=== PATIENT | male | born 1980 ===

== ENCOUNTER 2018-02-07 12:07 | Emergency (ER) | payer SELFPAY ==
[2018-02-07 12:07] VITALS: BMI 47.8
[2018-02-07 12:19] VITALS: RESP 18; TEMP 98.2
--- NOTE | 2018-02-07 12:31 | ED PDOC ---
Arrival/HPI - General Chief Complaint: High Blood Pressure Time Seen by Provider: 02/07/18 12:10 Historian: Patient - History of Present Illness Narrative History of Present Illness (Text): 02/07/18 12:26 37 year old male, with a past medical history that includes Hypertension, presents to the emergency department with high blood pressure. Patient states he was at the wound center this morning for his leg wound and they read his blood pressure to be very high. Patient states he feels fine, and has no symptoms. Patient states the "cuff was too small for his arm". Patient states he has been having a headache since yesterday, associated with some tooth pain. Patient states he had the tooth removed a year ago, and now the area is giving him gum pain. Patient denies any fever, chills, dizziness, cough, chest pain, shortness of breath, abdominal pain, nausea, vomiting, diarrhea, neck/ back pain, urinary/bowel changes or any other complaint. 02/07/18 15:35 Time/Duration: Prior to Arrival Symptom Course: Unchanged Activities at Onset: Light Past Medical History - Provider Review Nursing Documentation Reviewed: Yes - Infectious Disease Hx of Infectious Diseases: None - Cardiac Hx Hypertension: Yes - Pulmonary Hx Respiratory Disorders: No - Neurological Hx Neurological Disorder: No - HEENT Hx HEENT Disorder: Yes Other/Comment: Use Eyeglasses - Renal Hx Renal Disorder: No - Endocrine/Metabolic Hx Endocrine Disorders: No Other/Comment: Pre diabetes - Hematological/Oncological Hx Blood Disorders: No - Integumentary Hx Dermatological Disorder: No - Musculoskeletal/Rheumatological Hx Musculoskeletal Disorders: No Hx Falls: No - Gastrointestinal Hx Gastrointestinal Disorders: No - Genitourinary/Gynecological Hx Genitourinary Disorders: No - Psychiatric Hx Psychophysiologic Disorder: No Hx Substance Use: No - Surgical History Hx Arthroscopy: Yes (Right knee) - Anesthesia Hx Anesthesia: No Hx Anesthesia Reactions: No Hx Malignant Hyperthermia: No Family/Social History - Physician Review Nursing Documentation Reviewed: Yes Family/Social History: No Known Family HX Smoking Status: Light Smoker < 10 Cigarettes Daily Hx Alcohol Use: No Hx Substance Use: No Allergies/Home Meds Allergies/Adverse Reactions: Allergies No Known Allergies Allergy (Verified 02/07/18 12:15) Home Medications: Home Meds Medication Instructions Recorded Confirmed amLODIPine [Norvasc] 10 mg PO DAILY 05/19/17 02/07/18 Review of Systems - Physician Review All systems were reviewed & negative as marked: Yes - Review of Systems Constitutional: Normal. absent: Fevers, Night Sweats Eyes: Normal ENT: Normal Respiratory: Normal. absent: SOB, Cough Cardiovascular: Normal. absent: Chest Pain Gastrointestinal: Normal. absent: Abdominal Pain, Diarrhea, Nausea, Vomiting Genitourinary Male: Normal Musculoskeletal: Normal. absent: Back Pain, Neck Pain Skin: Normal Neurological: Normal. absent: Dizziness Endocrine: Normal Hemo/Lymphatic: Normal Psychiatric: Normal Physical Exam Vital Signs Reviewed: Yes Vital Signs Temp Pulse Resp BP Pulse Ox 02/07/18 12:46 98.2 F 90 18 165/99 H 97 02/07/18 12:18 98.2 F 86 18 165/89 H 99 Temperature: Afebrile Blood Pressure: Normal Pulse: Regular Respiratory Rate: Normal Appearance: Positive for: Well-Appearing, Non-Toxic, Comfortable Pain Distress: None Mental Status: Positive for: Alert and Oriented X 3 - Systems Exam Head: Present: Atraumatic, Normocephalic Pupils: Present: PERRL Extroacular Muscles: Present: EOMI Conjunctiva: Present: Normal Mouth: Present: Moist Mucous Membranes Neck: Present: Normal Range of Motion Respiratory/Chest: Present: Clear to Auscultation, Good Air Exchange. No: Respiratory Distress, Accessory Muscle Use Cardiovascular: Present: Regular Rate and Rhythm, Normal S1, S2. No: Murmurs Abdomen: No: Tenderness, Distention, Peritoneal Signs Back: Present: Normal Inspection Upper Extremity: Present: Normal Inspection. No: Cyanosis, Edema Lower Extremity: Present: Normal Inspection. No: Edema Neurological: Present: GCS=15, CN II-XII Intact, Speech Normal Skin: Present: Warm, Dry, Normal Color. No: Rashes Psychiatric: Present: Alert, Oriented x 3, Normal Insight, Normal Concentration Medical Decision Making ED Course and Treatment: 02/07/18 12:32 Impression: 37 year old male presents to the emergency department with high blood pressure. in er b/p 160 systolic. pt otherwise asympaotmic excepts mild palma and toothache. Plan: -- Amoxicillin -- Reassess and disposition Prior Visits: Notes and results from previous visits were reviewed. Progress Notes: 02/07/18 12:35 Patient was offered lab evaluations and imaging. Patient states he feels completely fine and denies further evaluation as b/p is now lower than clinic findings. he states he will return with worsening. 02/07/18 15:36 - Medication Orders Current Medication Orders: Discontinued Medications Amoxicillin (Amoxil 500 Mg Cap) 500 mg PO STAT STA PRN Reason: Protocol Stop: 02/07/18 12:25 Last Admin: 02/07/18 12:42 Dose: 500 mg - Scribe Statement The provider has reviewed the documentation as recorded by the Scribe Lazaro Galna All medical record entries made by the Scribe were at my direction and personally dictated by me. I have reviewed the chart and agree that the record accurately reflects my personal performance of the history, physical exam, medical decision making, and the department course for this patient. I have also personally directed, reviewed, and agree with the discharge instructions and disposition. Disposition/Present on Arrival - Present on Arrival Any Indicators Present on Arrival: No History of DVT/PE: No History of Uncontrolled Diabetes: No Urinary Catheter: No History of Decub. Ulcer: No History Surgical Site Infection Following: None - Disposition Have Diagnosis and Disposition been Completed?: Yes Diagnosis: Hypertension, Toothache Disposition: HOME/ ROUTINE Disposition Time: 12:35 Condition: STABLE Discharge Instructions (ExitCare): Controlling Your Blood Pressure Through Lifestyle, Medicines for High Blood Pressure, Dental Pain (DC) Additional Instructions: you are declining any lab work and imaging. you are able to return to any er with any worsening symptoms or concerns. Prescriptions: Amoxicillin [Amoxil 500 mg Cap] 500 mg PO TID #30 cap Referrals: [facility] [Outside] - Follow up with primary [facility] [Outside] - Follow up with primary [facility] [facility] [Outside] - Follow up with primary Forms: [employer] (Setswana)
[2018-02-07 12:47] VITALS: BP 165/99; PULSE 90; O2SAT 97
== END 2018-02-07 12:46 | disposition home or self-care (01) ==
LOC: ED 12:07
DX: I10 Essential (primary) hypertension (principal); K08.89 Other specified disorders of teeth and supporting structures; F17.210 Nicotine dependence, cigarettes, uncomplicated; R73.03 Prediabetes

== ENCOUNTER 2018-09-18 15:48 | Emergency (ER) | payer OTHER ==
[2018-09-18 16:03] VITALS: BMI 59.3
[2018-09-18 16:09] VITALS: RESP 18; TEMP 97.7
[2018-09-18] MEDS ORDERED: Labetalol 5mg/ml (4ml) IV STA (16:15)
[2018-09-18 16:41] LABS: BASO # 0.03 K/mm3 (0.0-2.0); BASO % 0.3 % (0.0-3.0); EOS # 0.3 (0.0-0.7); EOS % 3.2 % (1.5-5.0); HEMOGLOBIN 13.3 g/dL (14.0-18.0); LYMPH # 2.5 (1.2-3.4); LYMPH % 26.9 % (22.0-35.0); MEAN CELL VOLUME 85.8 fl (80.0-105.0); MEAN CORPUSCULAR HEMOGLOBIN 27.3 pg (25.0-35.0); MEAN CORPUSCULAR HGB CONC 31.8 g/dl (31.0-37.0); MONO # 0.7 (0.1-0.6); MONO % 7.8 % (1.0-6.0); RBC 4.87 10^6/uL (3.5-6.1); RED CELL DISTRIBUTION WIDTH 13.5 % (11.5-14.5); WHITE BLOOD COUNT 9.2 10^3/uL (4.5-11.0)
[2018-09-18] MEDS ORDERED: Sodium Chloride 0.9% 1,000 ML IV SCH (16:45)
[2018-09-18 16:54] LABS: ALBUMIN 3.9 g/dL (3.0-4.8); ALT/SGPT 50 U/L (7-56); AST/SGOT 28 U/L (17-59); BLOOD UREA NITROGEN 23 mg/dL (7-21); CALCIUM 9.6 mg/dL (8.4-10.5); GFR NON-AFRICAN AMERICAN > 60
[2018-09-18 17:01] LABS: URINE APPEARANCE CLEAR (CLEAR); URINE BILIRUBIN NEGATIVE (NEGATIVE); URINE BLOOD NEGATIVE (NEGATIVE); URINE COLOR YELLOW (YELLOW); URINE GLUCOSE (UA) NEGATIVE (NEGATIVE); URINE LEUKOCYTE ESTERASE TRACE Leu/uL (NEGATIVE); URINE PROTEIN TRACE mg/dL (<30 mg/dL); URINE UROBILINOGEN 0.2 E.U./dL (<1 E.U./dL)
[2018-09-18 17:12] LABS: B-TYPE NATRIURETIC PEPTIDE 57.4 pg/mL (0-450); TROPONIN I < 0.01 ng/mL
--- NOTE | 2018-09-18 17:28 | RAD ---
HISTORY: sob COMPARISON: None available. TECHNIQUE: Chest, one view. FINDINGS: Examination limited by habitus and hypoinflation. LUNGS: Hypoinflation. No focal consolidation. Please note that chest x-ray has limited sensitivity for the detection of pulmonary masses. PLEURA: No significant pleural effusion identified. No definite pneumothorax . CARDIOVASCULAR: Cardiomegaly. No significant atherosclerotic calcification present. OSSEOUS STRUCTURES: No acute osseous abnormality identified. VISUALIZED UPPER ABDOMEN: Unremarkable. OTHER FINDINGS: None. IMPRESSION: Hypoinflation. Cardiomegaly. No focal consolidation.
--- NOTE | 2018-09-18 17:39 | ED PDOC ---
Arrival/HPI - General Chief Complaint: High Blood Pressure Historian: Patient - History of Present Illness Narrative History of Present Illness (Text): 09/18/18 16:36 Devon Chapman is a 38 year old male, with a past medical history of cellulitis, hypertension, morbid obesity, and right ankle ulcer, who presents to the emergency department sent from wound care clinic complaining of hypertension. Patient's blood pressure read 180/110 at wound care. Patient notes tingling sensation of fingers on left hand. Patient notes experiencing intermittent parasthesias of the left upper extremity for 2 weeks. Patient denies any other associated symptoms. Patient was seen at wound [facility] today for chronic right ankle ulcer. Patient denies any fevers, chills, headache, dizziness, vision changes, chest pain, shortness of breath, dyspnea on exertion, cough, abdominal pain, nausea, vomiting, diarrhea, back pain, neck pain, dysuria, hematuria, or any other complaints. Time/Duration: Prior to Arrival Symptom Onset: Sudden Symptom Course: Unchanged Activities at Onset: Light Context: Other (wound care clinic) Past Medical History - Provider Review Nursing Documentation Reviewed: Yes - Infectious Disease Hx of Infectious Diseases: None - Cardiac Hx Hypertension: Yes - Pulmonary Hx Respiratory Disorders: No - Neurological Hx Neurological Disorder: No - HEENT Hx HEENT Disorder: Yes Other/Comment: Use Eyeglasses - Renal Hx Renal Disorder: No - Endocrine/Metabolic Hx Endocrine Disorders: No Other/Comment: Pre diabetes - Hematological/Oncological Hx Blood Disorders: No - Integumentary Hx Dermatological Disorder: No - Musculoskeletal/Rheumatological Hx Musculoskeletal Disorders: No Hx Falls: No - Gastrointestinal Hx Gastrointestinal Disorders: No - Genitourinary/Gynecological Hx Genitourinary Disorders: No - Psychiatric Hx Psychophysiologic Disorder: No Hx Substance Use: No - Surgical History Hx Arthroscopy: Yes (Right knee) - Anesthesia Hx Anesthesia: Yes Hx Anesthesia Reactions: No Hx Malignant Hyperthermia: No Family/Social History - Physician Review Nursing Documentation Reviewed: Yes Family/Social History: Unknown Family HX Smoking Status: Light Smoker < 10 Cigarettes Daily Hx Alcohol Use: No Hx Substance Use: No Allergies/Home Meds Allergies/Adverse Reactions: Allergies No Known Allergies Allergy (Verified 09/18/18 16:03) Home Medications: Home Meds Medication Instructions Recorded Confirmed amLODIPine [Norvasc] 10 mg PO DAILY 05/19/17 09/18/18 Review of Systems - Physician Review All systems were reviewed & negative as marked: Yes - Review of Systems Constitutional: absent: Fevers, Other (chills) Eyes: absent: Vision Changes Respiratory: absent: SOB, Cough Cardiovascular: Other (hypertensive episode). absent: Chest Pain, BRADSHAW Gastrointestinal: absent: Abdominal Pain, Diarrhea, Nausea, Vomiting Genitourinary Male: absent: Dysuria, Hematuria Musculoskeletal: Other (Tingling of fingers in left hand; intermittent parasthesias of left upper extremity for 2 weeks). absent: Back Pain, Neck Pain Neurological: Other. absent: Headache, Dizziness Physical Exam Vital Signs Reviewed: Yes Vital Signs Temp Pulse Pulse Resp BP BP Pulse Ox 09/18/18 16:36 93 H 167/95 H 09/18/18 16:08 97.7 F 97 H 18 177/123 H 95 Temperature: Afebrile Blood Pressure: Hypertensive Pulse: Tachycardic Respiratory Rate: Normal Appearance: Positive for: Well-Appearing, Non-Toxic, Comfortable, Other (morbidly obese) Pain Distress: None Mental Status: Positive for: Alert and Oriented X 3 - Systems Exam Head: Present: Atraumatic, Normocephalic Pupils: Present: PERRL Extroacular Muscles: Present: EOMI Conjunctiva: Present: Normal Mouth: Present: Moist Mucous Membranes Neck: Present: Normal Range of Motion Respiratory/Chest: Present: Clear to Auscultation, Good Air Exchange. No: Respiratory Distress, Accessory Muscle Use, Wheezes, Rales, Rhonchi Cardiovascular: Present: Regular Rate and Rhythm, Normal S1, S2. No: Murmurs, Rub, Gallop Abdomen: Present: Normal Bowel Sounds. No: Tenderness, Distention, Peritoneal Signs, Rebound, Guarding Back: Present: Normal Inspection Upper Extremity: Present: Normal Inspection, Normal ROM, NORMAL PULSES, Neurovascularly Intact, Capillary Refill < 2s. No: Cyanosis, Edema Lower Extremity: Present: Normal Inspection, NORMAL PULSES, Normal ROM, Neurovascularly Intact (Left upper extremity sensation and motor function intact), Capillary Refill < 2 s. No: Edema Neurological: Present: GCS=15, CN II-XII Intact, Speech Normal, Motor Func Grossly Intact, Normal Sensory Function Skin: Present: Warm, Dry, Normal Color. No: Rashes Psychiatric: Present: Alert, Oriented x 3, Normal Insight, Normal Concentration Medical Decision Making ED Course and Treatment: 09/18/18 16:36 Impression: 38 year old male sent in from clinic for elevated blood pressure and tingling within the fingers Plan: -- Labs -- Chest X-Ray -- IV Fluids -- Trandate -- Urinalysis w/Micro -- Reassess and disposition Prior Visits: Notes and results from previous visits were reviewed. Progress Notes: 09/18/18 18:21 Labs reviewed show no evidence of leukocytosis or electrolyte abnormalities. Troponin negative. CXR reveals mild cardiomegaly, but no vascular congestion. Blood pressure noted to be 160s/100s. Labetolol given. Will recheck blood pressure in 10 minutes 09/18/18 18:50 Blood pressure rechecked and noted to be 150/88. Patient advised to follow up in clinic for medication reconciliation. He demonstrates understanding and will follow up. He is stable for discharge. - Lab Interpretations Lab Results: Troponin I < 0.01 ng/mL 09/18/18 16:37 NT-Pro-B Natriuret Pep 57.4 pg/mL (0-450) 09/18/18 16:37 Total Bilirubin 0.2 mg/dL (0.2-1.3) 09/18/18 16:37 AST 28 U/L (17-59) 09/18/18 16:37 ALT 50 U/L (7-56) 09/18/18 16:37 Alkaline Phosphatase 78 U/L (38-126) 09/18/18 16:37 Total Protein 7.8 g/dL (5.8-8.3) 09/18/18 16:37 Albumin 3.9 g/dL (3.0-4.8) 09/18/18 16:37 Globulin 3.9 gm/dL 09/18/18 16:37 Albumin/Globulin Ratio 1.0 (1.1-1.8) L 09/18/18 16:37 Urine Color Yellow (YELLOW) 09/18/18 16:50 Urine Appearance Clear (CLEAR) 09/18/18 16:50 Urine pH 6.0 (4.7-8.0) 09/18/18 16:50 Ur Specific [place] 1.025 (1.005-1.035) 09/18/18 16:50 Urine Protein Trace mg/dL (<30 mg/dL) H 09/18/18 16:50 Urine Glucose (UA) Negative mg/dL (NEGATIVE) 09/18/18 16:50 Urine Ketones Trace mg/dL (NEGATIVE) H 09/18/18 16:50 Urine Blood Negative (NEGATIVE) 09/18/18 16:50 Urine Nitrate Negative (NEGATIVE) 09/18/18 16:50 Urine Bilirubin Negative (NEGATIVE) 09/18/18 16:50 Urine Urobilinogen 0.2 E.U./dL (<1 E.U./dL) 09/18/18 16:50 Ur Leukocyte Esterase Trace [place]/uL (NEGATIVE) H 09/18/18 16:50 Urine RBC None /hpf (0-2) 09/18/18 16:50 Urine WBC 2 - 5 /hpf (0-6) 09/18/18 16:50 Ur Epithelial Cells 1 - 3 /hpf (0-5) 09/18/18 16:50 09/18/18 16:37 09/18/18 16:37 Lab Results 09/18/18 16:50: Urine Color Yellow, Urine Appearance Clear, Urine pH 6.0, Ur Specific [place] 1.025, Urine Protein Trace H, Urine Glucose (UA) Negative, U rine Ketones Trace H, Urine Blood Negative, Urine Nitrate Negative, Urine Bilirubin Negative, Urine Urobilinogen 0.2, Ur Leukocyte Esterase Trace H, Urine RBC None, Urine WBC 2 - 5, Ur Epithelial Cells 1 - 3 09/18/18 16:37: Sodium 141, Potassium 4.5, Chloride 105, Carbon Dioxide 28, Anion Gap 14, BUN 23 H, Creatinine 0.8, Est GFR ( Amer) > 60, Est GFR (Non-Af Amer) > 60, Random Glucose 90, Calcium 9.6, Total Bilirubin 0.2, AST 28, ALT 50, Alkaline Phosphatase 78, Troponin I < 0.01, NT-Pro-B Natriuret Pep 57.4, Total Protein 7.8, Albumin 3.9, Globulin 3.9, Albumin/Globulin Ratio 1.0 L 09/18/18 16:37: WBC 9.2, RBC 4.87, Hgb 13.3 L, Hct 41.8 L, MCV 85.8, MCH 27.3, MCHC 31.8, RDW 13.5, Plt Count 322, MPV 9.0, Neut % (Auto) 61.8, Lymph % (Auto) 26.9, [place] % (Auto) 7.8 H, Eos % (Auto) 3.2, Baso % (Auto) 0.3, Lymph # (Auto) 2.5, [place] # (Auto) 0.7 H, Eos # (Auto) 0.3, Baso # (Auto) 0.03, Absolute Neuts (auto) 5.66 I have reviewed the lab results: Yes - RAD Interpretation Narrative RAD Interpretations (Text): 09/18/18 17:24 Chest X-Ray shows: IMPRESSION: Hypoinflation. Cardiomegaly. No focal consolidation. Radiology Orders: 09/18/18 16:15 CHEST PORTABLE [RAD] Stat [employer] Operator: Radiologist - EKG Interpretation EKG Interpretation (Text): 09/18/18 16:16 Reviewed EKG, shows: NSR at 90 BPM Interpreted by ED Physician: Yes Type: 12 lead EKG - Medication Orders Current Medication Orders: Sodium Chloride (Sodium Chloride 0.9%) 1,000 mls @ 100 mls/hr IV .Q10H BON Last Admin: 09/18/18 16:48 Dose: 100 mls/hr eMAR Start Stop Document 09/18/18 16:48 BB (Rec: 09/18/18 16:48 BB [id number]) Intravenous Solution Start Date 09/18/18 Start Time 16:48 Discontinued Medications Labetalol HCl (Trandate) 20 mg IV STAT STA Stop: 09/18/18 16:16 - Scribe Statement The provider has reviewed the documentation as recorded by the Scribdenny Moreland All medical record entries made by the Stacyibdenny were at my direction and personally dictated by me. I have reviewed the chart and agree that the record accurately reflects my personal performance of the history, physical exam, [facility] decision making, and the department course for this patient. I have also personally directed, reviewed, and agree with the discharge instructions and disposition. Disposition/Present on Arrival - Present on Arrival Any Indicators Present on Arrival: No History of DVT/PE: No History of Uncontrolled Diabetes: No Urinary Catheter: No History of Decub. Ulcer: No History Surgical Site Infection Following: None - Disposition Have Diagnosis and Disposition been Completed?: Yes Diagnosis: Hypertensive urgency Disposition: HOME/ ROUTINE Disposition Time: 19:03 Patient Plan: Discharge Condition: IMPROVED Discharge Instructions (ExitCare): High Blood Pressure (DC) Print Language: OCCITAN Additional Instructions: All medical record entries made by the Scribe were at my direction and personally dictated by me. I have reviewed the chart and agree that the record accurately reflects my personal performance of the history, physical exam, medical decision making, and the department course for this patient. I have also personally directed, reviewed, and agree with the discharge instructions and disposition. Alhaji follow up in clinic Referrals: Aye Redding MD [Medical Doctor] - Follow up with primary [facility] [Outside] - Follow up with primary Forms: [employer] (Sudanese), WORK NOTE
[2018-09-18 18:26] VITALS: PULSE 87
[2018-09-18 18:54] VITALS: BP 144/69; O2SAT 98
--- NOTE | 2018-09-18 19:20 | CARD ---
APPROVED REPORT Date of service: 09/18/2018 EKG Measurement Heart [id number] <Conclusion> Normal sinus rhythm Minimal voltage criteria for LVH, may be normal variant Borderline ECG
--- NOTE | 2018-09-20 18:20 | ED PDOC ---
ED Additional Note - Physician Additional Note Physician Additional Note: Spoke with patient regarding urine culture results. pt states he is have some urinary frequency and possibly occasional dysuria. rx for amoxicillin transmitted to patients pharmacy. pt was advised to f/u with clinic on saturday as scheduled and return if immediately if symptoms worsen,persist or if new symptoms develop.
== END 2018-09-18 19:14 | disposition home or self-care (01) ==
LOC: ED 15:48
DX: I16.0 Hypertensive urgency (principal); I10 Essential (primary) hypertension; F17.210 Nicotine dependence, cigarettes, uncomplicated; R73.03 Prediabetes
CPT/HCPCS: 71045; 80053; 81001; 83880; 84484; 85025; 87086; 93005; 99284; J7030

== ENCOUNTER → 2018-09-24 | Outpatient (CLI) | payer OTHER | LOC: LAB 07:12 ==

== ENCOUNTER 2018-09-25 12:19 | Outpatient (CLI) | payer OTHER | END 2018-09-25 12:20 | disposition home or self-care (01) | LOC: LAB 12:19 | DX: I10 Essential (primary) hypertension (principal) ==

== ENCOUNTER 2018-10-20 19:14 | Emergency (ER) | payer OTHER ==
[2018-10-20 19:34] VITALS: BMI 59.1
[2018-10-20 19:39] VITALS: RESP 18; TEMP 98.4
--- NOTE | 2018-10-20 20:27 | ED PDOC ---
Arrival/HPI <Zan James - Last Filed: 10/20/18 20:33> - General Historian: Patient - History of Present Illness Narrative History of Present Illness (Text): 10/20/18 20:28 38 year old male, with a past medical history of cellulitis, hypertension, morbid obesity, and right ankle ulcer, who presents to the emergency department complaining of pain and swelling to the base of the left 3rd digit for the past 3 days. Patient reports he is right handed. He denies any numbness, fever, nausea, vomiting, headache, other joint pain, decrease range of motion, or any other somatic complaints. Time/Duration: < week Symptom Onset: Gradual Symptom Course: Unchanged Activities at Onset: Light Context: Home <Kianna Trent PA-C - Last Filed: 10/20/18 22:42> - General Chief Complaint: Finger,Hand,&Wrist Time Seen by Provider: 10/20/18 19:16 Past Medical History - Provider Review Nursing Documentation Reviewed: Yes Primary Care Provider: Aye Redding - Infectious Disease Hx of Infectious Diseases: None - Cardiac Hx Hypertension: Yes - Pulmonary Hx Respiratory Disorders: No - Neurological Hx Neurological Disorder: No - HEENT Hx HEENT Disorder: Yes Other/Comment: Use Eyeglasses - Renal Hx Renal Disorder: No - Endocrine/Metabolic Hx Endocrine Disorders: No Other/Comment: Pre diabetes - Hematological/Oncological Hx Blood Disorders: No - Integumentary Hx Dermatological Disorder: No - Musculoskeletal/Rheumatological Hx Musculoskeletal Disorders: No Hx Falls: No - Gastrointestinal Hx Gastrointestinal Disorders: No - Genitourinary/Gynecological Hx Genitourinary Disorders: No - Psychiatric Hx Psychophysiologic Disorder: No Hx Substance Use: No - Surgical History Hx Arthroscopy: Yes (Right knee) - Anesthesia Hx Anesthesia: Yes Hx Anesthesia Reactions: No Hx Malignant Hyperthermia: No <Kianna Trent PA-C - Last Filed: 10/20/18 22:42> Family/Social History - Physician Review Nursing Documentation Reviewed: Yes Family/Social History: Unknown Family HX Smoking Status: Former Smoker Hx Alcohol Use: Yes Frequency of alcohol use: Socially Hx Substance Use: No <Kianna Trent PA-C - Last Filed: 10/20/18 22:42> Allergies/Home Meds <Zan James - Last Filed: 10/20/18 20:33> <Kianna Trent PA-C - Last Filed: 10/20/18 22:42> Allergies/Adverse Reactions: Allergies No Known Allergies Allergy (Verified 09/18/18 16:03) Home Medications: Home Meds Medication Instructions Recorded Confirmed amLODIPine [Norvasc] 10 mg PO DAILY 05/19/17 09/18/18 Review of Systems - Physician Review All systems were reviewed & negative as marked: Yes - Review of Systems Constitutional: absent: Fevers Cardiovascular: absent: Chest Pain Gastrointestinal: absent: Nausea, Vomiting Musculoskeletal: absent: Back Pain, Neck Pain Neurological: absent: Headache <Kianna Trent PA-C - Last Filed: 10/20/18 22:42> Physical Exam Vital Signs Temp Pulse Resp BP Pulse Ox 10/20/18 19:15 98.4 F 94 H 18 155/94 H 95 <Zan James - Last Filed: 10/20/18 20:33> Vital Signs Reviewed: Yes Vital Signs Temp Pulse Resp BP Pulse Ox 10/20/18 19:15 98.4 F 94 H 18 155/94 H 95 Temperature: Afebrile Blood Pressure: Hypertensive Pulse: Regular Respiratory Rate: Normal Appearance: Positive for: Well-Appearing, Non-Toxic, Comfortable, Other (Patient is morbidly obese) Pain Distress: Mild Mental Status: Positive for: Alert and Oriented X 3 - Systems Exam Upper Extremity: Present: Normal Inspection, Normal ROM, NORMAL PULSES, Tenderness (+Tenderness to the left finger), Swelling (mild welling), Neurovascularly Intact, Capillary Refill < 2s, Norm 2-Pt Discrimination. No: Erythema, Temperature Abnormalties, Deformity Neurological: Present: GCS=15, CN II-XII Intact, Speech Normal, Motor Func Grossly Intact, Normal Sensory Function Skin: Present: Warm, Dry, Normal Color. No: Rashes Psychiatric: Present: Alert, Oriented x 3, Normal Insight, Normal Concentration <Kianna Trent PA-C - Last Filed: 10/20/18 22:42> Medical Decision Making - RAD Interpretation Radiology Orders: 10/20/18 20:04 HAND LEFT 3 VIEWS ROUTINE [RAD] Stat <Zan Jamse - Last Filed: 10/20/18 20:33> ED Course and Treatment: 10/20/18 20:25 Impression: 38 year old male presents to the ED complaining of pain and swelling to the base of left 3rd digit x 3 days. Differential Diagnosis included but are not limited to: Plan: -- X-ray left hand -- Reassess and disposition Prior Visits: Notes and results from previous visits were reviewed. Progress Notes: 10/20/18 21:04 X-ray left hand : no fracture or dislocation. On reevaluation, remains awake alert and oriented 3 in no acute distress. XR results d/w the patient. Advised to rest, ice and elevate the hand. Advised to follow up with referral provided in 1-2 days without fail. Advised to take medication as prescribed. Return to the emergency room at any time for any new or worsening symptoms. Patient states he fully agrees with and understands discharge instructions. States that he agrees with the plan and disposition. Verbalized and repeated discharge instructions and plan. I have given the patient opportunity to ask any additional questions. - RAD Interpretation Radiology Orders: 10/20/18 20:04 HAND LEFT 3 VIEWS ROUTINE [RAD] Stat <Kianna Trent PA-C - Last Filed: 10/20/18 22:42> - PA / [employer] / Resident Statement MOON has reviewed & agrees with the documentation as recorded. <Zan James - Last Filed: 10/20/18 20:33> - PA / [employer] / Resident Statement MOON has reviewed & agrees with the documentation as recorded. MOON has examined the patient and agrees with the treatment plan. - Scribe Statement The provider has reviewed the documentation as recorded by the Andre Garza Provider Scribe Attestation: All medical record entries made by the Andre were at my direction and personally dictated by me. I have reviewed the chart and agree that the record accurately reflects my personal performance of the history, physical exam, medical decision making, and the department course for this patient. I have also personally directed, reviewed, and agree with the discharge instructions and disposition. <Kianna Trent PA-C - Last Filed: 10/20/18 22:42> Disposition/Present on Arrival <Zan James - Last Filed: 10/20/18 20:33> - Present on Arrival Any Indicators Present on Arrival: No History of DVT/PE: No History of Uncontrolled Diabetes: No Urinary Catheter: No History of Decub. Ulcer: No History Surgical Site Infection Following: None - Disposition Have Diagnosis and Disposition been Completed?: Yes Disposition Time: 21:00 Patient Plan: Discharge <Twan LOCKETTKianna CulverGonzalez - Last Filed: 10/20/18 22:42> - Disposition Diagnosis: Finger pain, left Disposition: HOME/ ROUTINE Condition: STABLE Discharge Instructions (ExitCare): Muscle and Bone Pain (DC) Additional Instructions: Thank you for letting us take care of you today. You were treated for L finger pain. The emergency medical care you received today was directed at your acute symptoms. If you were prescribed any medication, please fill it and take as directed. It may take several days for your symptoms to resolve. Return to the Emergency Department if your symptoms worsen, do not improve, or if you have any other problems. Please call one of the physicians/clinics you have been referred to that are listed on the Patient Visit Information form that is included in your discharge packet. Bring any paperwork you were given at discharge with you along with any medications you are taking to your follow up visit. Our treatment cannot replace ongoing medical care by a primary care provider (PCP) outside of the emergency department. Thank you for allowing the [facility] team to be part of your care today. If you had an X-Ray : A Radiologist will review the ED reading if any change in treatment is needed we will contact you. Prescriptions: Naproxen 500 mg PO BID PRN #20 tablet PRN Reason: Pain, Moderate (4-7) Referrals: [facility] [Outside] - Follow up with primary Forms: [employer] ([place]), WORK NOTE
[2018-10-20 21:20] VITALS: BP 146/77; PULSE 88; O2SAT 96
--- NOTE | 2018-10-21 09:28 | RAD ---
PROCEDURE: Left Hand Radiographs. HISTORY: pain COMPARISON: None. TECHNIQUE: 3 views obtained. FINDINGS: BONES: Normal. No fracture. JOINTS: Normal. No osteoarthritic changes. SOFT TISSUES: Normal. OTHER FINDINGS: None. IMPRESSION: Normal left hand radiographs.
== END 2018-10-20 21:18 | disposition home or self-care (01) ==
LOC: ED 19:14
DX: M79.645 Pain in left finger(s) (principal); I10 Essential (primary) hypertension; E66.01 Morbid (severe) obesity due to excess calories; Z87.891 Personal history of nicotine dependence; R73.03 Prediabetes

== ENCOUNTER 2018-10-22 07:01 | Outpatient (CLI) | payer OTHER | END 2018-10-22 07:02 | disposition home or self-care (01) | LOC: LAB 07:01 | DX: I10 Essential (primary) hypertension (principal) ==

== ENCOUNTER 2018-10-30 14:59 | Emergency (ER) | payer OTHER ==
[2018-10-30 15:05] VITALS: RESP 18; BMI 60.7
--- NOTE | 2018-10-30 15:19 | ED PDOC ---
Arrival/HPI - General Historian: Patient - History of Present Illness Narrative History of Present Illness (Text): 10/30/18 15:19 Patient is a 38 yo male with hypertension, morbid obesity, and right ankle ulcer who presents with sore throat. Patient states the sore throat started yesterday and worsened today. He took Motrin without any relief. He says today he also had a fever of 105.4. He has not really been able to eat solids due to pain. He was able to drink Gatorade and eat ice cream. He states it is hard form him to take a deep breath via his mouth. He says he kept waking up with a dry mouth. He also has a productive cough of white phlegm. He states his 13 yo son tested positive for strep throat yesterday. Time/Duration: 24 hours Symptom Onset: Gradual Symptom Course: Worsening <June Nguyen - Last Filed: 10/30/18 15:52> <Ayaan Davis - Last Filed: 10/30/18 18:28> - General Chief Complaint: ENT Problem Time Seen by Provider: 10/30/18 15:12 Past Medical History - Provider Review Nursing Documentation Reviewed: Yes - Infectious Disease Hx of Infectious Diseases: None - Tetanus Immunization Tetanus Immunization: Unknown - Cardiac Hx Hypertension: Yes - Pulmonary Hx Respiratory Disorders: No - Neurological Hx Neurological Disorder: No - HEENT Hx HEENT Disorder: Yes Other/Comment: Use Eyeglasses - Renal Hx Renal Disorder: No - Endocrine/Metabolic Hx Endocrine Disorders: No Other/Comment: Pre diabetes - Hematological/Oncological Hx Blood Disorders: No - Integumentary Hx Dermatological Disorder: No - Musculoskeletal/Rheumatological Hx Musculoskeletal Disorders: No Hx Falls: No - Gastrointestinal Hx Gastrointestinal Disorders: No - Genitourinary/Gynecological Hx Genitourinary Disorders: No - Psychiatric Hx Psychophysiologic Disorder: No Hx Substance Use: No - Surgical History Hx Arthroscopy: Yes (Right knee) - Anesthesia Hx Anesthesia: Yes Hx Anesthesia Reactions: No Hx Malignant Hyperthermia: No <June Nguyen - Last Filed: 10/30/18 15:52> Family/Social History - Physician Review Nursing Documentation Reviewed: Yes Family/Social History: Unknown Family HX Smoking Status: Former Smoker Hx Alcohol Use: Yes Hx Substance Use: No <June Nguyen - Last Filed: 10/30/18 15:52> Allergies/Home Meds <June Nguyen - Last Filed: 10/30/18 15:52> <RyanAyaan Wendy - Last Filed: 10/30/18 18:28> Allergies/Adverse Reactions: Allergies No Known Allergies Allergy (Verified 09/18/18 16:03) Home Medications: Home Meds Medication Instructions Recorded Confirmed amLODIPine [Norvasc] 10 mg PO DAILY 05/19/17 09/18/18 Review of Systems - Review of Systems Constitutional: Fatigue, Fevers Eyes: Normal ENT: Normal Respiratory: Cough, Sputum. absent: SOB Cardiovascular: absent: Chest Pain, Palpitations Gastrointestinal: absent: Abdominal Pain, Nausea, Vomiting Musculoskeletal: absent: Myalgias Skin: absent: Rash, Pruritis, Skin Lesions Neurological: Headache. absent: Dizziness Endocrine: absent: Diaphoresis Hemo/Lymphatic: Adenopathy <June Nguyen - Last Filed: 10/30/18 15:52> Physical Exam Vital Signs Temp Pulse Resp BP Pulse Ox 10/30/18 15:04 99.0 F 128 H 18 156/94 H 97 Temperature: Febrile (102.2) Blood Pressure: Hypertensive Pulse: Tachycardic Respiratory Rate: Normal Appearance: Positive for: Uncomfortable Pain Distress: Mild Mental Status: Positive for: Alert and Oriented X 3 - Systems Exam Head: Present: Atraumatic, Normocephalic Pupils: Present: PERRL Extroacular Muscles: Present: EOMI Conjunctiva: Present: Normal Ears: Present: Normal Pharnyx: Present: ERYTHEMA, EXUDATE, TONSILS ENLARGED, Muffled/Hoarse Voice. No: Uvular Deviation, Strider, Soft Palate/Uvular Edema Neck: Present: Normal Range of Motion, Lymphadenopathy (tender), Trachea Midline. No: Meningeal Signs Respiratory/Chest: Present: Clear to Auscultation, Good Air Exchange Cardiovascular: Present: Normal S1, S2, Tachycardic Abdomen: Present: Other (obese) Neurological: Present: GCS=15, CN II-XII Intact, Speech Normal Skin: Present: Dry, Normal Color, Hot Lymphatic: Present: Cervical Adenopathy Psychiatric: Present: Alert, Oriented x 3, Normal Insight, Normal Concentration <June Nguyen - Last Filed: 10/30/18 15:52> Vital Signs Temp Pulse Resp BP Pulse Ox 10/30/18 16:16 101.9 F H 115 H 18 130/79 95 10/30/18 15:36 102.2 F H 10/30/18 15:04 99.0 F 128 H 18 156/94 H 97 <Ayaan Davis - Last Filed: 10/30/18 18:28> Medical Decision Making - Medication Orders Current Medication Orders: 10/30/18 15:42 Decadron 10 mg PO Motrin 800 mg PO <June Nguyen - Last Filed: 10/30/18 15:52> ED Course and Treatment: Seen and examined with resident. 38 y/o M p/w sore throat. On exam, tonsillar enlargement with exudates. - Medication Orders Current Medication Orders: Discontinued Medications Dexamethasone (Decadron) 10 mg PO STAT STA Stop: 10/30/18 15:41 Last Admin: 10/30/18 16:06 Dose: 10 mg Ibuprofen (Motrin Tab) 800 mg PO STAT STA Stop: 10/30/18 15:38 Last Admin: 10/30/18 15:47 Dose: 800 mg <Ayaan Davis - Last Filed: 10/30/18 18:28> Disposition/Present on Arrival - Present on Arrival Any Indicators Present on Arrival: No History of DVT/PE: No History of Uncontrolled Diabetes: No Urinary Catheter: No History of Decub. Ulcer: No History Surgical Site Infection Following: None - Disposition Have Diagnosis and Disposition been Completed?: Yes Disposition Time: 15:42 Patient Plan: Discharge <June Nguyen - Last Filed: 10/30/18 15:52> <Ayaan Davis - Last Filed: 10/30/18 18:28> - Disposition Diagnosis: Strep pharyngitis Disposition: HOME/ ROUTINE Condition: STABLE Discharge Instructions (ExitCare): Strep Throat (DC) Additional Instructions: Follow-up with your primary care provider in 3-5 days. Take Ibuprofen or Acetaminophen as needed for fever. Take Amoxicillin 875 mg twice daily for a total of 10 days. Prescriptions: Amoxicillin 875 mg PO BID #20 tablet Forms: [employer] ([place]), WORK NOTE
[2018-10-30 16:17] VITALS: BP 130/79; PULSE 115; TEMP 101.9; O2SAT 95
== END 2018-10-30 16:19 | disposition home or self-care (01) ==
LOC: ED 14:59
DX: J02.0 Streptococcal pharyngitis (principal); E66.01 Morbid (severe) obesity due to excess calories; I10 Essential (primary) hypertension; R73.03 Prediabetes; Z87.891 Personal history of nicotine dependence
CPT/HCPCS: 99283; J8540